=== PATIENT | male | born 1945 | race Caucasian/White ===

== ENCOUNTER 2017-06-16 15:51 | Inpatient (IN) | payer MEDICARE ==
[~2017-06-16] VITALS: Ht 182.9 cm; Wt 83.9 kg
[2017-06-16] MEDS ORDERED: METH5TAB2 PO (16:16)
[2017-06-16] MEDS ORDERED: METOPROLOL TARTRATE 50 MG TABLET PO ONE (16:55)
[2017-06-16] MEDS ORDERED: METOPROLOL TARTRATE 50 MG TABLET ONE (17:20)
[2017-06-16 17:23] LABS: BASOPHILS % (AUTO) 0.4 % (0.0-2.0); EOSINOPHILS % (AUTO) 0.5 % (0.0-7.0); HEMATOCRIT 38.8 % (36.7-47.1); HEMOGLOBIN 13.2 g/dL (12.5-16.3); LYMPHOCYTES # (AUTO) 1.6 K/uL (20.0-40.0); LYMPHOCYTES % (AUTO) 19.5 % (20.5-51.5); MEAN CORPUSCULAR HEMOGLOBIN 28.9 uug (23.8-33.4); MEAN CORPUSCULAR HGB CONC 34 g/dL (32.5-36.3); MEAN CORPUSCULAR VOLUME 84.9 fL (73.0-96.2); MONOCYTES # (AUTO) 0.4 K/uL (2.0-10.0); MONOCYTES % (AUTO) 4.8 % (0.0-11.0); NEUTROPHILS # (AUTO) 6.1 K/uL (1.8-8.9); NEUTROPHILS % (AUTO) 74.8 % (38.5-71.5); PLATELET COUNT (AUTO) 188 K/uL (152-348); RED BLOOD CELL COUNT(AUTO) 4.57 MIL/uL (4.06-5.63); WHITE BLOOD COUNT (AUTO) 8.1 K/uL (3.6-10.2)
[2017-06-16 17:40] LABS: ALANINE AMINOTRANSFERASE 26 U/L (16-63); ALKALINE PHOSPHATASE 91 U/L (50-136); ASPARTATE AMINOTRANSFERASE 20 U/L (15-37); BILIRUBIN,TOTAL 0.3 mg/dL (0.2-1.0); CREATINE KINASE, TOTAL 67 U/L (39-308); TOTAL PROTEIN, SERUM 7.3 g/dL (6.4-8.2)
[2017-06-16] MEDS ORDERED: NORMAL SALINE FLUSH 10 ML DISP.SYRIN ONE (17:44)
[2017-06-16] MEDS ORDERED: IOHEXOL 300MG/ML 100 ML INFUS..BTL ONE (17:44)
[2017-06-16] MEDS ORDERED: IV NORMAL SALINE 0 ML IV ONE (17:44)
[2017-06-16 17:46] LABS: CHLORIDE 101 mmol/L (98-107)
[2017-06-16 17:47] LABS: CARBON DIOXIDE 30 mmol/L (21-32); GLUCOSE 97 mg/dL (74-106)
[2017-06-16 17:48] LABS: UREA NITROGEN, BLOOD 21 mg/dL (7-18)
[2017-06-16 18:22] LABS: *BILIRUBIN,URIN NEGATIVE (NEGATIVE); *BLOOD, URINE 1+ (NEGATIVE); *CLARITY,URINE CLEAR (CLEAR); *COLOR,URINE YELLOW (YELLOW); *KETONES,URINE NEGATIVE (NEGATIVE); *PROTEIN,URINE NEGATIVE (NEGATIVE); *UROBILINOGEN,URINE 0.2 E.U./dl (NORMAL); LEUKOCYTE ESTERASE ,URINE NEGATIVE (NEGATIVE); NITRITE, URINE NEGATIVE (NEGATIVE); UGLUCOSE NEGATIVE (NEGATIVE)
[2017-06-16 18:33] LABS: MUCUS,URINE FEW /LPF (0-FEW); SQUAMOUS EPITHELIAL CELL,UR FEW /HPF (NONE SEEN); WBC,URINE 0-3 /HPF (0-3)
[2017-06-16 21:18] VITALS: BP 162/68
[2017-06-16] MEDS ORDERED: MORPHINE SULFATE 2 MG/1 ML DISP.SYRIN IV PRN (23:15)
[2017-06-16] MEDS ORDERED: ZOLPIDEM 5 MG TABLET PO PRN (23:15)
[2017-06-16] MEDS ORDERED: ONDANSETRON 4 MG/2 ML VIAL IV PRN (23:15)
[2017-06-16] MEDS: AMLODIPINE 5 MG TABLET PO SCH (23:54)
[2017-06-17] VITALS: BP 134/86
[2017-06-17] MEDS ORDERED: AMLODIPINE 5 MG TABLET ONE (00:07)
[2017-06-17] MEDS ORDERED: MORPHINE SULFATE 4 MG/1 ML DISP.SYRIN ONE (00:21)
[2017-06-17 04:00] VITALS: BP 162/75
[2017-06-17] MEDS: hydrALAZINE HCL 25 MG TABLET PO PRN (05:24)
[2017-06-17] MEDS ORDERED: hydrALAZINE HCL 25 MG TABLET ONE (05:39)
[2017-06-17 07:15] LABS: BASOPHILS % (AUTO) 0.4 % (0.0-2.0); EOSINOPHILS # (AUTO) 0.1 K/uL (0.0-0.7); EOSINOPHILS % (AUTO) 1.2 % (0.0-7.0); HEMATOCRIT 38.5 % (36.7-47.1); HEMOGLOBIN 13.1 g/dL (12.5-16.3); LYMPHOCYTES # (AUTO) 2.6 K/uL (20.0-40.0); LYMPHOCYTES % (AUTO) 32.9 % (20.5-51.5); MEAN CORPUSCULAR HEMOGLOBIN 28.8 uug (23.8-33.4); MEAN CORPUSCULAR HGB CONC 34 g/dL (32.5-36.3); MEAN CORPUSCULAR VOLUME 84.7 fL (73.0-96.2); MONOCYTES # (AUTO) 0.5 K/uL (2.0-10.0); MONOCYTES % (AUTO) 6.9 % (0.0-11.0); NEUTROPHILS # (AUTO) 4.7 K/uL (1.8-8.9); NEUTROPHILS % (AUTO) 58.6 % (38.5-71.5); PLATELET COUNT (AUTO) 193 K/uL (152-348); RED BLOOD CELL COUNT(AUTO) 4.55 MIL/uL (4.06-5.63)
[2017-06-17 07:23] LABS: ALANINE AMINOTRANSFERASE 24 U/L (16-63); ASPARTATE AMINOTRANSFERASE 20 U/L (15-37); BILIRUBIN,TOTAL 0.4 mg/dL (0.2-1.0); CARBON DIOXIDE 28 mmol/L (21-32); CHLORIDE 105 mmol/L (98-107); CHOLESTEROL 152 mg/dL (<200); CREATININE 0.9 mg/dL (0.6-1.3); GLUCOSE 83 mg/dL (74-106); HDL CHOLESTEROL 41 mg/dL (40-60); PHOSPHOROUS 3.3 mg/dL (2.5-4.9); POTASSIUM 3.8 mmol/L (3.5-5.1); TOTAL PROTEIN, SERUM 6.7 g/dL (6.4-8.2); TRIGLYCERIDES 76 MG/DL (30-150); UREA NITROGEN, BLOOD 19 mg/dL (7-18)
[2017-06-17 07:43] LABS: ALKALINE PHOSPHATASE 81 U/L (50-136)
[2017-06-17] MEDS: PANTOPRAZOLE SODIUM 40 MG TABLET.DR PO SCH (07:50)
[2017-06-17] MEDS: AMLODIPINE 5 MG TABLET PO SCH ×2 (08:11→21:14)
[2017-06-17 10:56] VITALS: BP 127/74
[2017-06-17] MEDS ORDERED: MORPHINE SULFATE 2 MG/1 ML DISP.SYRIN IV PRN ×2 (13:15→13:30)
[2017-06-17] MEDS ORDERED: METHADONE HCL PO SCH (13:15)
[2017-06-17] MEDS ORDERED: MORPHINE SULFATE 4 MG/1 ML DISP.SYRIN IV PRN (14:00)
[2017-06-17] MEDS: CLINDAMYCIN PHOSPHATE IV 600 MG in IV DEXTROSE 5% 100 ML IV SCH ×2 (14:09→21:16)
[2017-06-17] MEDS: NICOTINE 21 MG/24HR PATCH TD SCH (14:09)
[2017-06-17 15:48] VITALS: BP 124/67
[2017-06-17 20:00] VITALS: BP 157/81
[2017-06-17] MEDS ORDERED: DOCUSATE SODIUM 250 MG CAPSULE PO SCH (21:00)
[2017-06-18 04:00] VITALS: BP 174/62
[2017-06-18] MEDS: hydrALAZINE HCL 25 MG TABLET PO PRN (04:49)
[2017-06-18] MEDS: CLINDAMYCIN PHOSPHATE IV 600 MG in IV DEXTROSE 5% 100 ML IV SCH ×3 (06:29→21:52)
[2017-06-18] MEDS: PANTOPRAZOLE SODIUM 40 MG TABLET.DR PO SCH (06:29)
[2017-06-18 06:58] LABS: BASOPHILS % (AUTO) 0.3 % (0.0-2.0); EOSINOPHILS # (AUTO) 0.1 K/uL (0.0-0.7); EOSINOPHILS % (AUTO) 1.8 % (0.0-7.0); HEMATOCRIT 40.8 % (36.7-47.1); HEMOGLOBIN 13.7 g/dL (12.5-16.3); LYMPHOCYTES # (AUTO) 2.5 K/uL (20.0-40.0); LYMPHOCYTES % (AUTO) 35.1 % (20.5-51.5); MEAN CORPUSCULAR HEMOGLOBIN 28.7 uug (23.8-33.4); MEAN CORPUSCULAR HGB CONC 34 g/dL (32.5-36.3); MONOCYTES # (AUTO) 0.5 K/uL (2.0-10.0); MONOCYTES % (AUTO) 7.5 % (0.0-11.0); NEUTROPHILS % (AUTO) 55.3 % (38.5-71.5); PLATELET COUNT (AUTO) 189 K/uL (152-348); WHITE BLOOD COUNT (AUTO) 7.2 K/uL (3.6-10.2)
[2017-06-18 07:20] LABS: ALANINE AMINOTRANSFERASE 23 U/L (16-63); ALKALINE PHOSPHATASE 86 U/L (50-136); ASPARTATE AMINOTRANSFERASE 17 U/L (15-37); BILIRUBIN,TOTAL 0.3 mg/dL (0.2-1.0); CARBON DIOXIDE 32 mmol/L (21-32); CHLORIDE 104 mmol/L (98-107); CREATININE 0.9 mg/dL (0.6-1.3); GLUCOSE 97 mg/dL (74-106); MAGNESIUM 2.3 mg/dL (1.8-2.4); PHOSPHOROUS 3.6 mg/dL (2.5-4.9); POTASSIUM 3.8 mmol/L (3.5-5.1); TOTAL PROTEIN, SERUM 7.2 g/dL (6.4-8.2); UREA NITROGEN, BLOOD 22 mg/dL (7-18)
[2017-06-18] MEDS: AMLODIPINE 5 MG TABLET PO SCH ×2 (08:14→21:53)
[2017-06-18] MEDS: NICOTINE 21 MG/24HR PATCH TD SCH (08:15)
[2017-06-18] MEDS: hydrALAZINE HCL 10 MG TABLET PO SCH ×2 (10:56→21:53)
[2017-06-18 11:44] VITALS: BP 148/82
[2017-06-18 15:28] VITALS: BP 156/70
[2017-06-18 20:00] VITALS: BP 151/83
[2017-06-18] MEDS: ACETYLCYSTEINE 20% 800 MG/4 ML VIAL PO SCH (21:00)
[2017-06-18] MEDS: ACETAMINOPHEN 325 MG TABLET PO PRN (21:53)
[2017-06-18] MEDS: DOCUSATE SODIUM 100 MG CAPSULE PO SCH (21:54)
[2017-06-19] MEDS: ACETYLCYSTEINE 20% 800 MG/4 ML VIAL PO SCH ×3 (01:23→21:00)
[2017-06-19 04:00] VITALS: BP 156/72
[2017-06-19] MEDS: CLINDAMYCIN PHOSPHATE IV 600 MG in IV DEXTROSE 5% 100 ML IV SCH ×3 (05:45→21:51)
[2017-06-19] MEDS: PANTOPRAZOLE SODIUM 40 MG TABLET.DR PO SCH (06:00)
[2017-06-19 06:59] LABS: EOSINOPHILS % (AUTO) 0.4 % (0.0-7.0); MEAN CORPUSCULAR VOLUME 84.9 fL (73.0-96.2); MONOCYTES # (AUTO) 0.5 K/uL (2.0-10.0)
[2017-06-19 07:17] LABS: BASOPHILS % (AUTO) 0.2 % (0.0-2.0); HEMATOCRIT 43.1 % (36.7-47.1); HEMOGLOBIN 14.4 g/dL (12.5-16.3); LYMPHOCYTES # (AUTO) 1.4 K/uL (20.0-40.0); LYMPHOCYTES % (AUTO) 10.7 % (20.5-51.5); MEAN CORPUSCULAR HEMOGLOBIN 28.4 uug (23.8-33.4); MEAN CORPUSCULAR HGB CONC 34 g/dL (32.5-36.3); NEUTROPHILS % (AUTO) 84.7 % (38.5-71.5); PLATELET COUNT (AUTO) 209 K/uL (152-348); RED BLOOD CELL COUNT(AUTO) 5.08 MIL/uL (4.06-5.63)
[2017-06-19 07:35] LABS: ALANINE AMINOTRANSFERASE 23 U/L (16-63); ALKALINE PHOSPHATASE 89 U/L (50-136); ASPARTATE AMINOTRANSFERASE 19 U/L (15-37); BILIRUBIN,TOTAL 0.4 mg/dL (0.2-1.0); CARBON DIOXIDE 27 mmol/L (21-32); CHLORIDE 103 mmol/L (98-107); GLUCOSE 141 mg/dL (74-106); MAGNESIUM 2.1 mg/dL (1.8-2.4); PHOSPHOROUS 3.2 mg/dL (2.5-4.9); POTASSIUM 4.3 mmol/L (3.5-5.1); TOTAL PROTEIN, SERUM 7.4 g/dL (6.4-8.2); UREA NITROGEN, BLOOD 23 mg/dL (7-18)
[2017-06-19] MEDS: NICOTINE 21 MG/24HR PATCH TD SCH (08:11)
[2017-06-19] MEDS: AMLODIPINE 5 MG TABLET PO SCH ×2 (08:11→21:51)
[2017-06-19] MEDS: hydrALAZINE HCL 10 MG TABLET PO SCH (08:11)
[2017-06-19] MEDS ORDERED: CLONIDINE HCL 0.1 MG TABLET PO PRN (11:00)
[2017-06-19 11:29] VITALS: BP 131/78
[2017-06-19] MEDS: hydrALAZINE HCL 25 MG TABLET PO SCH ×2 (13:08→22:45)
[2017-06-19] MEDS ORDERED: HYDROCODONE/APAP 5-325MG TABLET PO PRN (14:30)
[2017-06-19 15:40] VITALS: BP 130/62
[2017-06-19] MEDS ORDERED: SILVER NITRATE APPLICATOR STICK EACH TP ONE (19:57)
[2017-06-19 20:00] VITALS: BP 143/67
[2017-06-19] MEDS: DOCUSATE SODIUM 100 MG CAPSULE PO SCH (21:51)
[2017-06-20 04:55] VITALS: BP 188/78
[2017-06-20] MEDS: CLINDAMYCIN PHOSPHATE IV 600 MG in IV DEXTROSE 5% 100 ML IV SCH ×3 (05:21→22:15)
[2017-06-20] MEDS: hydrALAZINE HCL 25 MG TABLET PO SCH ×3 (05:21→22:14)
[2017-06-20] MEDS: PANTOPRAZOLE SODIUM 40 MG TABLET.DR PO SCH (06:16)
[2017-06-20 07:34] LABS: BASOPHILS % (AUTO) 0.3 % (0.0-2.0); EOSINOPHILS # (AUTO) 0.1 K/uL (0.0-0.7); EOSINOPHILS % (AUTO) 1.2 % (0.0-7.0); HEMATOCRIT 40.9 % (36.7-47.1); HEMOGLOBIN 13.8 g/dL (12.5-16.3); LYMPHOCYTES # (AUTO) 1.1 K/uL (20.0-40.0); LYMPHOCYTES % (AUTO) 17.6 % (20.5-51.5); MEAN CORPUSCULAR HEMOGLOBIN 28.5 uug (23.8-33.4); MEAN CORPUSCULAR HGB CONC 34 g/dL (32.5-36.3); MEAN CORPUSCULAR VOLUME 84.2 fL (73.0-96.2); MONOCYTES # (AUTO) 0.4 K/uL (2.0-10.0); MONOCYTES % (AUTO) 6.2 % (0.0-11.0); NEUTROPHILS # (AUTO) 4.8 K/uL (1.8-8.9); NEUTROPHILS % (AUTO) 74.7 % (38.5-71.5); PLATELET COUNT (AUTO) 189 K/uL (152-348); RED BLOOD CELL COUNT(AUTO) 4.85 MIL/uL (4.06-5.63)
[2017-06-20 07:35] LABS: ALANINE AMINOTRANSFERASE 25 U/L (16-63); ALKALINE PHOSPHATASE 85 U/L (50-136); ASPARTATE AMINOTRANSFERASE 20 U/L (15-37); BILIRUBIN,TOTAL 0.3 mg/dL (0.2-1.0); CARBON DIOXIDE 28 mmol/L (21-32); CHLORIDE 104 mmol/L (98-107); GLUCOSE 97 mg/dL (74-106); MAGNESIUM 2.1 mg/dL (1.8-2.4); PHOSPHOROUS 2.5 mg/dL (2.5-4.9); POTASSIUM 3.8 mmol/L (3.5-5.1); TOTAL PROTEIN, SERUM 7.1 g/dL (6.4-8.2); UREA NITROGEN, BLOOD 17 mg/dL (7-18)
[2017-06-20 07:48] LABS: WHITE BLOOD COUNT (AUTO) 6.4 K/uL (3.6-10.2)
[2017-06-20] MEDS: AMLODIPINE 5 MG TABLET PO SCH ×2 (08:25→20:38)
[2017-06-20] MEDS: NICOTINE 21 MG/24HR PATCH TD SCH ×2 (08:26→08:30)
[2017-06-20] MEDS: ACETYLCYSTEINE 20% 800 MG/4 ML VIAL PO SCH (09:00)
[2017-06-20 11:31] VITALS: BP 145/72
[2017-06-20 15:14] VITALS: BP 145/67
[2017-06-20 20:00] VITALS: BP 154/73
[2017-06-20] MEDS: DOCUSATE SODIUM 100 MG CAPSULE PO SCH (20:37)
[2017-06-20] MEDS: LOSARTAN POTASSIUM 25 MG TABLET PO SCH (20:38)
[2017-06-21] MEDS: hydrALAZINE HCL 25 MG TABLET PO SCH ×2 (05:24→14:05)
[2017-06-21] MEDS: CLINDAMYCIN PHOSPHATE IV 600 MG in IV DEXTROSE 5% 100 ML IV SCH (05:25)
[2017-06-21 06:01] VITALS: BP 125/83
[2017-06-21] MEDS: ACETAMINOPHEN 325 MG TABLET PO PRN (06:27)
[2017-06-21] MEDS: PANTOPRAZOLE SODIUM 40 MG TABLET.DR PO SCH (06:44)
[2017-06-21] MEDS: NICOTINE 21 MG/24HR PATCH TD SCH (08:12)
[2017-06-21] MEDS: LOSARTAN POTASSIUM 25 MG TABLET PO SCH (08:12)
[2017-06-21] MEDS: AMLODIPINE 5 MG TABLET PO SCH (08:12)
[2017-06-21 08:48] LABS: BASOPHILS % (AUTO) 0.4 % (0.0-2.0); EOSINOPHILS # (AUTO) 0.1 K/uL (0.0-0.7); EOSINOPHILS % (AUTO) 1.4 % (0.0-7.0); HEMATOCRIT 38.6 % (36.7-47.1); LYMPHOCYTES % (AUTO) 19.6 % (20.5-51.5); MEAN CORPUSCULAR HEMOGLOBIN 28.2 uug (23.8-33.4); MEAN CORPUSCULAR HGB CONC 34 g/dL (32.5-36.3); MONOCYTES # (AUTO) 0.5 K/uL (2.0-10.0); MONOCYTES % (AUTO) 9.7 % (0.0-11.0); NEUTROPHILS # (AUTO) 3.5 K/uL (1.8-8.9); NEUTROPHILS % (AUTO) 68.9 % (38.5-71.5); PLATELET COUNT (AUTO) 157 K/uL (152-348); RED BLOOD CELL COUNT(AUTO) 4.59 MIL/uL (4.06-5.63)
[2017-06-21 09:06] LABS: ALANINE AMINOTRANSFERASE 21 U/L (16-63); ALKALINE PHOSPHATASE 74 U/L (50-136); ASPARTATE AMINOTRANSFERASE 17 U/L (15-37); BILIRUBIN,TOTAL 0.2 mg/dL (0.2-1.0); CARBON DIOXIDE 25 mmol/L (21-32); CHLORIDE 102 mmol/L (98-107); GLUCOSE 107 mg/dL (74-106); MAGNESIUM 1.9 mg/dL (1.8-2.4); POTASSIUM 3.7 mmol/L (3.5-5.1); TOTAL PROTEIN, SERUM 6.6 g/dL (6.4-8.2); UREA NITROGEN, BLOOD 11 mg/dL (7-18)
[2017-06-21 11:11] VITALS: BP 128/50
[2017-06-21] MEDS ORDERED: HYDR25TA86 PO (11:30)
[2017-06-21] MEDS ORDERED: AMLO5TAB2 PO (11:30)
[2017-06-21] MEDS ORDERED: LOSA25TA3 PO (11:30)
[2017-06-21] MEDS ORDERED: LACT1CAP59 PO (11:34)
[2017-06-21] MEDS ORDERED: CLIN300C3 PO (11:34)
[2017-06-21] MEDS ORDERED: ACET325T53 PO (11:34)
[2017-06-21] MEDS ORDERED: CLINDAMYCIN HCL 300 MG CAPSULE PO SCH (14:00)
[2017-06-21 14:05] VITALS: BP 140/77
== END 2017-06-21 14:35 | disposition home or self-care (01) | DRG 155 ==
LOC: ER 15:51 → TELE 20:43 → MED 06-17 18:53
PROVIDERS: ADMIT Internal Medicine; ATTEND Internal Medicine
PROC: 0HB1XZX Excision of Face Skin, External Approach, Diagnostic (ICD-10-PCS; principal; 2017-06-16)
DX: J34.0 Abscess, furuncle and carbuncle of nose (principal); I31.3 Pericardial effusion (noninflammatory); E88.09 Other disorders of plasma-protein metabolism, not elsewhere classified; F11.20 Opioid dependence, uncomplicated; J98.4 Other disorders of lung; J98.11 Atelectasis; C44.321 Squamous cell carcinoma of skin of nose; R16.1 Splenomegaly, not elsewhere classified; B95.61 Methicillin susceptible Staphylococcus aureus infection as the cause of diseases classified elsewhere; D49.0 Neoplasm of unspecified behavior of digestive system; Z85.828 Personal history of other malignant neoplasm of skin; R22.0 Localized swelling, mass and lump, head; Z92.3 Personal history of irradiation; Z87.01 Personal history of pneumonia (recurrent); F17.210 Nicotine dependence, cigarettes, uncomplicated; E78.5 Hyperlipidemia, unspecified; J34.89 Other specified disorders of nose and nasal sinuses; I44.7 Left bundle-branch block, unspecified; R59.1 Generalized enlarged lymph nodes; E04.2 Nontoxic multinodular goiter; Z86.73 Personal history of transient ischemic attack (TIA), and cerebral infarction without residual deficits; J33.8 Other polyp of sinus; M51.37 Other intervertebral disc degeneration, lumbosacral region; M47.894 Other spondylosis, thoracic region; M47.897 Other spondylosis, lumbosacral region; K42.9 Umbilical hernia without obstruction or gangrene; Z79.899 Other long term (current) drug therapy; K86.9 Disease of pancreas, unspecified; R73.9 Hyperglycemia, unspecified; H53.2 Diplopia; I11.9 Hypertensive heart disease without heart failure; I44.0 Atrioventricular block, first degree; K40.20 Bilateral inguinal hernia, without obstruction or gangrene, not specified as recurrent
CPT/HCPCS: 36415; 70030-TC; 70450; 70486; 70490; 71045; 71250; 83735; 84100; 84443; 85025; 85610; 87070; 87077; 93005; 93307; A4663; J2270; J3490; J7050; J7060; Q9967